=== PATIENT | female | born 2000 | race Caucasian/White ===

== ENCOUNTER 2020-04-05 23:37 | Emergency (ER) | payer OTHER ==
[~2020-04-05] VITALS: Ht 157.5 cm; Wt 49.0 kg
[2020-04-06 00:11] LABS: URINE BILIRUBIN NEGATIVE (Negative); URINE BLOOD TRACE (Negative); URINE CLARITY SL CLOUDY; URINE COLOR YELLOW; URINE GLUCOSE-RANDOM* NEGATIVE (Negative); URINE KETONES NEGATIVE (Negative); URINE PROTEIN (DIPSTICK) 1+ (Negative); URINE SPECIFIC GRAVITY 1.025 (1.005-1.035); URINE UROBILINOGEN >= 8.0 E.U./dl (0.2-1.0)
[2020-04-06 00:30] LABS: URINE LEUKOCYTES-REFLEX 2+ (Negative); URINE NITRITE-REFLEX POSITIVE (Negative)
[2020-04-06 00:33] LABS: SQUAMOUS 0-3 Few /LPF (0-3)
[2020-04-06 00:34] LABS: BACTERIA-REFLEX >30 Many /HPF (None Seen); CASTS None Seen /LPF (None Seen); CRYSTALS None Seen /LPF (None Seen); MUCUS 0-3 Light strn/LPF (None Seen); URINE RBC 0-2 Rare /HPF (0-2); URINE WBC-REFLEX >25 Many /HPF (0-5); WBC CLUMPS Few (None Seen)
[2020-04-06 01:22] LABS: ABSOLUTE NEUTROPHILS 8.3 thou/uL (1.4-8.2); BASOPHILS 0.1 % (0.0-2.0); EOSINOPHILS 0.5 % (0.0-3.0); HEMATOCRIT 36.9 % (37.0-47.0); HEMOGLOBIN 12.9 gm/dL (12.0-15.0); LYMPHOCYTES 8.3 % (24.0-44.0); MCH 31.1 pg (26.0-34.0); MCHC 34.9 g/dL (28.0-37.0); MCV 89.1 fL (80.0-100.0); MONOCYTES 7.3 % (1.0-8.0); PLATELET COUNT 244 thou/uL (150-400); POLYS 83.8 % (36.0-66.0); RBC 4.14 mil/uL (4.20-5.00); RDW 12.8 % (10.5-14.5); WBC 9.9 thou/uL (4.0-11.0)
[2020-04-06 01:35] LABS: CALCIUM 8.6 mg/dL (8.5-10.1); CREATININE 0.6 mg/dL (0.6-1.0); POTASSIUM 3.4 mmol/L (3.5-5.1)
[2020-04-06] MEDS ORDERED: MACROBID 100 M100 M1 PO (05:28)
[2020-04-06] MEDS ORDERED: SENNA-DOCUSATE1 EAC1 PO (05:28)
[2020-04-06] MEDS ORDERED: NORCO 5-325 TA1 EAC2 PO (05:28)
[2020-04-06] MEDS ORDERED: ZOFRAN ODT4 MG PO (05:29)
[2020-04-06 05:43] VITALS: BP 111/70
== END 2020-04-06 05:46 | disposition home or self-care (01) ==
LOC: ER 23:37
PROVIDERS: Emergency Medicine
DX: O23.02 Infections of kidney in pregnancy, second trimester (principal); R42 Dizziness and giddiness; Z3A.16 16 weeks gestation of pregnancy; Z98.890 Other specified postprocedural states

== ENCOUNTER 2020-04-28 23:52 | Emergency (ER) | payer OTHER ==
[~2020-04-28] VITALS: Ht 157.5 cm; Wt 50.8 kg
[~2020-04-28 23:52] MED LIST: MACROBID 100 M100 M1 PO; NORCO 5-325 TA1 EAC2 PO; SENNA-DOCUSATE1 EAC1 PO; ZOFRAN ODT4 MG PO
[2020-04-29] MEDS ORDERED: ENBRACE HR SOF1 EACH PO (00:04)
[2020-04-29] MEDS ORDERED: SUPER THERAVIT1 EACH PO (00:04)
[2020-04-29 00:14] LABS: URINE BILIRUBIN NEGATIVE (Negative); URINE BLOOD NEGATIVE (Negative); URINE CLARITY CLEAR; URINE COLOR ORANGE; URINE GLUCOSE-RANDOM* TRACE (Negative); URINE KETONES NEGATIVE (Negative); URINE PROTEIN (DIPSTICK) NEGATIVE (Negative); URINE SPECIFIC GRAVITY <= 1.005 (1.005-1.035)
[2020-04-29 00:16] LABS: URINE LEUKOCYTES-REFLEX 3+ (Negative); URINE NITRITE-REFLEX POSITIVE (Negative)
[2020-04-29 00:27] LABS: BACTERIA-REFLEX None Seen /HPF (None Seen); CASTS None Seen /LPF (None Seen); MUCUS None Seen strn/LPF (None Seen); SQUAMOUS None Seen /LPF (0-3); URINE RBC None Seen /HPF (0-2); URINE WBC-REFLEX 0-5 Rare /HPF (0-5)
[2020-04-29 00:28] LABS: CRYSTALS None Seen /LPF (None Seen); YEAST-REFLEX Present (None Seen)
[2020-04-29 01:07] LABS: CALCIUM 8.5 mg/dL (8.5-10.1); CREATININE 0.5 mg/dL (0.6-1.0); MAGNESIUM 1.7 mg/dL (1.8-2.4); POTASSIUM 3.6 mmol/L (3.5-5.1)
[2020-04-29 01:23] VITALS: BP 123/76
[2020-04-29] MEDS ORDERED: KEFLEX500 M2 PO (01:24)
[2020-04-29] MEDS ORDERED: VITAMIN B-625 MG PO (01:24)
== END 2020-04-29 01:29 | disposition home or self-care (01) ==
LOC: ER 23:52
PROVIDERS: Emergency Medicine
DX: O23.42 Unspecified infection of urinary tract in pregnancy, second trimester (principal); Z3A.18 18 weeks gestation of pregnancy; Z79.899 Other long term (current) drug therapy

== ENCOUNTER 2020-05-05 22:54 | Emergency (ER) | payer OTHER ==
[~2020-05-05] VITALS: Ht 157.5 cm; Wt 50.8 kg
[~2020-05-05 22:54] MED LIST changes: +ENBRACE HR SOF1 EACH PO; +KEFLEX500 M2 PO; +SUPER THERAVIT1 EACH PO; +VITAMIN B-625 MG PO
[2020-05-05 23:29] LABS: URINE BILIRUBIN NEGATIVE (Negative); URINE BLOOD NEGATIVE (Negative); URINE CLARITY CLEAR; URINE COLOR YELLOW; URINE GLUCOSE-RANDOM* NEGATIVE (Negative); URINE KETONES 3+ (Negative); URINE NITRITE-REFLEX NEGATIVE (Negative); URINE PROTEIN (DIPSTICK) NEGATIVE (Negative); URINE UROBILINOGEN >= 8.0 E.U./dl (0.2-1.0)
[2020-05-05 23:33] LABS: URINE LEUKOCYTES-REFLEX 1+ (Negative)
[2020-05-05 23:36] LABS: BACTERIA-REFLEX None Seen /HPF (None Seen); CRYSTALS None Seen /LPF (None Seen); HYALINE CASTS 0-3 Few /LPF (None Seen); MUCUS 4-6 Moderate strn/LPF (None Seen); SQUAMOUS 0-3 Few /LPF (0-3); TRANSITIONAL EPITHEL CELL 0-3 Few /LPF (None Seen); URINE RBC 0-2 Rare /HPF (0-2); URINE WBC-REFLEX 0-5 Rare /HPF (0-5)
[2020-05-05 23:44] LABS: ABSOLUTE NEUTROPHILS 8.7 thou/uL (1.4-8.2); BASOPHILS 0.4 % (0.0-2.0); EOSINOPHILS 0.9 % (0.0-3.0); HEMATOCRIT 39.1 % (37.0-47.0); LYMPHOCYTES 12.9 % (24.0-44.0); MCH 31.9 pg (26.0-34.0); MCHC 35.9 g/dL (28.0-37.0); MONOCYTES 4.2 % (1.0-8.0); PLATELET COUNT 232 thou/uL (150-400); POLYS 81.6 % (36.0-66.0); RDW 13.3 % (10.5-14.5); WBC 10.7 thou/uL (4.0-11.0)
[2020-05-05 23:58] LABS: CALCIUM 8.9 mg/dL (8.5-10.1); CREATININE 0.7 mg/dL (0.6-1.0); POTASSIUM 3.4 mmol/L (3.5-5.1)
[2020-05-06 00:03] LABS: ALBUMIN 3.8 g/dL (3.4-5.0); TOTAL BILIRUBIN 1.7 mg/dL (0.2-1.0)
[2020-05-06] MEDS ORDERED: ONDANSETRON ODT8 MG PO (01:56)
[2020-05-06] MEDS ORDERED: PEPCID20 MG PO (03:02)
[2020-05-06 03:09] VITALS: BP 112/73
== END 2020-05-06 03:10 | disposition home or self-care (01) ==
LOC: ER 22:54
PROVIDERS: Emergency Medicine
DX: O26.892 Other specified pregnancy related conditions, second trimester (principal); M54.9 Dorsalgia, unspecified; O21.8 Other vomiting complicating pregnancy; O26.832 Pregnancy related renal disease, second trimester; R35.0 Frequency of micturition; Z79.899 Other long term (current) drug therapy; Z3A.18 18 weeks gestation of pregnancy

== ENCOUNTER 2020-05-06 17:45 | Emergency (ER) | payer OTHER ==
[~2020-05-06] VITALS: Ht 157.5 cm; Wt 50.8 kg
[~2020-05-06 17:45] MED LIST changes: +ONDANSETRON ODT8 MG PO; +PEPCID20 MG PO
[2020-05-06 19:25] VITALS: BP 113/65
== END 2020-05-06 19:29 | disposition home or self-care (01) ==
LOC: ER 17:45
DX: O9A.212 Injury, poisoning and certain other consequences of external causes complicating pregnancy, second trimester (principal); S80.02XA Contusion of left knee, initial encounter; Z79.899 Other long term (current) drug therapy; Z3A.19 19 weeks gestation of pregnancy; Y04.2XXA Assault by strike against or bumped into by another person, initial encounter; Y93.89 Activity, other specified; Y92.89 Other specified places as the place of occurrence of the external cause; Y99.8 Other external cause status